=== PATIENT | female | born 1945 | race Caucasian/White ===

== ENCOUNTER → 2017-08-10 08:38 | Day surgery (SDC) | payer MEDICARE, BC, SELFPAY ==
[2017-08-09 11:41] VITALS: BMI 23.3
[2017-08-10] VITALS (11 sets, daily range): BP systolic 123–162; BP diastolic 56–71; PULSE 60–69; RESP 16–28; TEMP 36.3–36.4; O2SAT 92–97
--- NOTE | 2017-08-10 | XR_ITS ---
XR pacemaker defibrillator COMPARISON: None HISTORY pacemaker up grade XTECHNIQUE: Fluoroscopy FINDINGS: Single fluoroscopic spot film shows pacemaker electrodes projecting over the cardiac silhouette which appear to be in satisfactory position. IMPRESSION: Satisfactory up grade of pacemaker
--- NOTE | 2017-08-10 10:43 | HMH.ANESCL ---
[facility] Anesthesia Checklist - Patient Identification Patient Identification: Arm Band, Verbal (Name & ) - Structural Data Admitted From: Home Planned Operative Procedure/s: bi v pacer Consent for Planned Operative Procedure(s) Verified: Yes Verified Documents: Surgical Consent, History and Physical - NPO Status Verified Time NPO: 00:00 - Chart Verification Results Verified: CBC, BMP - Additional verifications Patient : No Anesthesia Reactions: No Hx Blood Transfusions: No Blood Transfusion Reaction: No Cephalosporin Allergy: No Previous Colonoscopy: No - Cardiovascular Assessment Heart Sounds: S1 & S2 Pulse Strength: Baseline Pulse Rhythm: Regular Peripheral Edema: No - Airway Assessment C-Spine Mobility Assessed: Yes TMJ Mobility Assessed: Yes Dentition: Partials - Neurological Assessment Level of Consciousness: Awake - Anesthesia Plan Anesthesia Risk discussed: Yes Anesthesia Plan: Verified ASA Class: IV Anesthesia Type: MAC [facility] Anesthesia HX I have reviewed the patient's past medical history: Yes Medical History: Reports:: Atrial Fibrillation, Congestive Heart Failure, Coronary Artery Disease, Hypertension, Internal Pacemaker Denies:: Cancer, Diabetes Mellitus Type 1, Diabetes Mellitus Type 2, MRSA, Seizures Other Medical History: Denies: Blood Transfusion Reaction Other Surgeries: Yes: Cardiac Catheterization (01/20/16 no stents, 10/13/15 stents), Hysterectomy-Partial, Pacemaker Amputation: No Fractures: No *Family Hx:: Cancer, Coronary Artery Disease, Diabetes, Hyperlipidemia, Hypertension
--- NOTE | 2017-08-10 12:19 | XR_ITS ---
XR chest portable HISTORY: ITS.REASON: S/P BIV PACEMAKER UPGRADE ORDERING PHYSICIAN: Yuri Potts MD PATIENT AGE: 72 years COMPARISON: None available FINDINGS: There is borderline cardio megaly. The left-sided cardiac pacemaker is noted with 4 electrodes noted. The lung aragon are clear of infiltrate and is no pulmonary congestion and is no pleural fluid. IMPRESSION: Negative chest, no acute finding
--- NOTE | 2017-08-10 13:17 | HMH.CRT-D ---
[facility] PROCESS MECHANIC-D - PROCESS MECHANIC-D Date of Procedure:: 08/10/17 Procedures:: 1. Pocket revision for biventricular pacemaker generator with cardiac resynchronization/defibrillator therapy. 2. Removal of old pacemaker generator. 3. Placement of left ventricular sensing pacing lead VIA the coronary sinus. 4. Permanent cardiac resynchronization therapy with AICD implantation/biventricular pacemaker. Indication for test:: Systolic Congestive Heart failure, ejection <35 % Wide QRS >120 ms [place] Heart [employer] Class 3 CHF Informed consent:: Obtained prior to procedure. Complications:: None EBL:: Less than 10 ml. Technique:: 1% Lidocaine with epinephrine used to anesthetize the left anterior aspect of the chest.Scalpel was used to make the initial cutaneous incision and then used to dissect down to the pacemaker generator. The generator was removed from the existing pocket. Digital manipulation was required along with intermittent usage of scalpel in order to revise the pocket. The pacemaker leads were removed from the old generator and then placed and secured into the new pacemaker generator. Under fluoroscopic guidance the coronary sinus was cannulated and confirmed with an injection of contrast. An 0.014 wire was then placed distally in the inferior posterior segment of the left ventricle via the coronary sinus and the left ventricular lead was advanced. After achieving excellent thresholds and interrogation numbers the sheath was then peeled away and the lead was then secured into place using silk suture. After achieving, hemostasis, Ancef was used to flush the pocket and the 3 leads were attached to the PROCESS MECHANIC-D generator. The generator was then secured into place by heavy silk suture. Monocryl was used to close the subcutaneous layers while kurt were used to close the subcutaneous layers while kurt were used to close the cutaneous layer. Pressurized and the patient was transferred to the postop holding area in stable condition. Impression:: 1. Successful pocket revision for biventricular pacemaker generator with cardiac resynchronization/defibrillator therapy. 2. Successful removal of old pacemaker generator. 3. Successful placement of left ventricular sensing pacing lead via the coronary sinus. 4. Successful permanent cardiac resynchronization plus AICD generator device. Interrogation:: New Generator Model Number: [id number], serial number: [id number] New LV Lead: Model Number: [id number]/86 serial number: [id number] Chronic RA Lead: p wave: 3.6 mV Impedance: 440 Ohms Threshold: 0.5V Pulse Width: 0.5ms Chronic RVA Lead: r wave: Impedance: 490 Ohms Threshold: 0.5V Pulse Width: 0.5ms New LV Lead: r wave: Impedance: 1250 Ohms Threshold: 1.25V Pulse Width: 0.5ms Pacing Parameters: Mode: DDDR Base/Max: 60/110 Plan:: 1.Post-op wound care.
--- NOTE | 2017-08-10 13:20 | P.PCN_ITS ---
[facility] HUMID SYSTEM OPERATOR-D - HUMID SYSTEM OPERATOR-D Date of Procedure:: 08/10/17 Procedures:: 1. Pocket revision for biventricular pacemaker generator with cardiac resynchronization/defibrillator therapy. 2. Removal of old pacemaker generator. 3. Placement of left ventricular sensing pacing lead VIA the coronary sinus. 4. Permanent cardiac resynchronization therapy with AICD implantation/ biventricular pacemaker. Indication for test:: Systolic Congestive Heart failure, ejection <35 % Wide QRS >120 ms [place] Heart [employer] Class 3 CHF Informed consent:: Obtained prior to procedure. Complications:: None EBL:: Less than 10 ml. Technique:: 1% Lidocaine with epinephrine used to anesthetize the left anterior aspect of the chest.Scalpel was used to make the initial cutaneous incision and then used to dissect down to the pacemaker generator. The generator was removed from the existing pocket. Digital manipulation was required along with intermittent usage of scalpel in order to revise the pocket. The pacemaker leads were removed from the old generator and then placed and secured into the new pacemaker generator. Under fluoroscopic guidance the coronary sinus was cannulated and confirmed with an injection of contrast. An 0.014 wire was then placed distally in the inferior posterior segment of the left ventricle via the coronary sinus and the left ventricular lead was advanced. After achieving excellent thresholds and interrogation numbers the sheath was then peeled away and the lead was then secured into place using silk suture. After achieving, hemostasis, Ancef was used to flush the pocket and the 3 leads were attached to the HUMID SYSTEM OPERATOR-D generator. The generator was then secured into place by heavy silk suture. Monocryl was used to close the subcutaneous layers while kurt were used to close the subcutaneous layers while kurt were used to close the cutaneous layer. Pressurized and the patient was transferred to the postop holding area in stable condition. Impression:: 1. Successful pocket revision for biventricular pacemaker generator with cardiac resynchronization/defibrillator therapy. 2. Successful removal of old pacemaker generator. 3. Successful placement of left ventricular sensing pacing lead via the coronary sinus. 4. Successful permanent cardiac resynchronization plus AICD generator device. Interrogation:: New Generator Model Number: [id number], serial number: [id number] New LV Lead: Model Number: [id number]/86 serial number: [id number] Chronic RA Lead: p wave: 3.6 mV Impedance: 440 Ohms Threshold: 0.5V Pulse Width: 0.5ms Chronic RVA Lead: r wave: Impedance: 490 Ohms Threshold: 0.5V Pulse Width: 0.5ms New LV Lead: r wave: Impedance: 1250 Ohms Threshold: 1.25V Pulse Width: 0.5ms Pacing Parameters: Mode: DDDR Base/Max: 60/110 Plan:: 1.Post-op wound care.
--- NOTE | 2017-08-10 13:40 | PC.NURSE ---
Pt c/o substernal chest tightness, rates as a 6 on 0-`[address] Potts consulted, order obtained for Percocet, no further intervention ordered at this time. Will monitor.
--- NOTE | 2017-08-10 13:43 | PC.NURSE ---
Pt visited per Dr Potts. Pt states pain has subsided, rates as 2 on 0-10 scale. Pt ok to be discharged per Dr Potts at this time.
--- NOTE | 2017-08-10 14:55 | PC.NURSE ---
Pt c/o nausea at discharge after being wheeled to car and standing. Pt told about possible post procedure nausea from anesthesia. Pt asked if she wants to stay while nurse calls MD to inquire about medications. Pt refused. Pt told to call MD is nausea continues for more than 24 hours.
== END ==
PROVIDERS: Family Provider Family Medicine; PCP Family Medicine; Visit Provider Internal Medicine
DX: Z45.02 Encounter for adjustment and management of automatic implantable cardiac defibrillator (principal); T82.191A Other mechanical complication of cardiac pulse generator (battery), initial encounter; I50.23 Acute on chronic systolic (congestive) heart failure; I11.0 Hypertensive heart disease with heart failure; I50.1 Left ventricular failure, unspecified; I25.10 Atherosclerotic heart disease of native coronary artery without angina pectoris; R06.02 Shortness of breath
CPT/HCPCS: 33225; 33264; 71045; 96374; C1769; C1882; C1894; C1900; Q9967